=== PATIENT | male | born 1950 | race Caucasian/White ===

== ENCOUNTER 2021-02-16 14:19 | Emergency (ER) | payer MEDICARE ==
[~2021-02-16] VITALS: Ht 170.2 cm; Wt 97.5 kg
[2021-02-16] MEDS ORDERED: NORVASC 2.5 MG2.5 M1 PO (14:28)
[2021-02-16] MEDS ORDERED: LISINOPRIL10 MG PO (14:28)
[2021-02-16] MEDS ORDERED: METFORMIN HCL500 MG PO (14:28)
[2021-02-16] MEDS ORDERED: FARXIGA5 MG PO (14:29)
[2021-02-16] MEDS ORDERED: CARVEDILOL12.5 MG PO (14:29)
[2021-02-16 15:22] LABS: ABSOLUTE BASOPHILS 0.1 thou/uL (0.0-0.2); ABSOLUTE EOSINOPHILS 0.5 thou/uL (0.0-0.7); ABSOLUTE LYMPHOCYTES 2.2 thou/uL (0.8-5.3); ABSOLUTE MONOCYTES 0.7 thou/uL (0.0-1.2); ABSOLUTE NEUTROPHILS 4.9 thou/uL (1.6-8.1); BASOPHILS 1.3 %; EOSINOPHILS 5.6 %; HEMATOCRIT 44.3 % (42.0-52.0); HEMOGLOBIN 15.4 gm/dL (14.0-18.0); LYMPHOCYTES 25.7 %; MCH 30.2 pg (26.0-34.0); MCHC 34.8 g/dL (28.0-37.0); MCV 86.8 fL (80.0-100.0); MONOCYTES 8.9 %; MPV 9.3 fl. (7.2-11.1); NUCLEATED RBCS 0 /100WBC; PLATELET COUNT* 211 thou/uL (150-400); POLYS 58.5 %; RBC 5.11 mil/uL (4.50-6.00); RDW-CV 13.7 % (10.5-14.5); WBC 8.4 thou/uL (4.0-11.0)
[2021-02-16 15:29] LABS: PROTIME 10.2 Seconds (9.20-11.50)
[2021-02-16 15:34] LABS: CALCIUM 8.4 mg/dL (8.5-10.1); CREATININE 1.1 mg/dL (0.6-1.3); POTASSIUM 3.3 mmol/L (3.5-5.1)
[2021-02-16 15:40] LABS: ALBUMIN 3.8 g/dL (3.4-5.0); CK-MB MASS 0.8 ng/mL (<0.5-3.6); TOTAL BILIRUBIN 0.4 mg/dL (<0.1-1.0)
--- NOTE | 2021-02-16 16:12 | EKG ---
[place] [address] ELECTROCARDIOGRAM REPORT Name: BONNIE LIRIANO Room: [facility]#: [id number] Admission: 02/16/21 Attend Phys: Discharge: Date of : 52 Date of Service: 02/16/21 1424 Report #: [id number] THIS REPORT FOR: //name// [facility] ED Test Date: 2021-02-16 Test Time: 14:24:30 Pat Name: BONNIE LIRIANO Department: Room: Gender: Car Supplier: [facility] : 1950 Requested By: Sanford You Order Number: [id number] MD: Kemal Mcbride Measurements Intervals [place] Rate: 79 P: -19 [place]: 211 QRS: -45 QRSD: 103 T: 35 QT: 400 QTc: 459 Interpretive Statements Sinus rhythm Consider right ventricular hypertrophy Inferior infarct, old Baseline wander in lead(s) II,III,aVL,aVF No previous ECG available for comparison Electronically Signed On 02-16-2021 16:12:36 CDT by Kemal Mcbride [email or web address] <ELECTRONICALLY SIGNED> By: Kemal Mcbride MD, [facility] 02/16/21 1612 1424 1424 Kemal Mcbride MD, [facility] /EPI
[2021-02-16 18:17] VITALS: BP 140/88
== END 2021-02-16 18:19 | disposition home or self-care (01) ==
LOC: M.ERS 14:19
PROVIDERS: Nurse Practitioner Psychiatric/Mental Health
DX: R07.89 Other chest pain (principal); R42 Dizziness and giddiness; E87.6 Hypokalemia; R11.0 Nausea; I10 Essential (primary) hypertension; E11.9 Type 2 diabetes mellitus without complications; Z79.899 Other long term (current) drug therapy